=== PATIENT | female | born 1995 | race American Indian/Alaskan Native ===

== ENCOUNTER 2018-11-08 11:08 | Emergency (ER) | payer BC ==
[2018-11-08 11:35] VITALS: BP 127/63
--- NOTE | 2018-11-08 11:40 | Emergency Department Report ---
Blank Doc - Documentation Documentation: 23 y/o no pmh with cough and congestion with coryza for 10-11 days. no hemopty sis. plan CXR
[2018-11-08 12:41] LABS: HCG Qualitative,Urine Positive (Negative)
--- NOTE | 2018-11-08 12:55 | Emergency Department Report ---
Minor Respiratory - HPI Chief Complaint: Upper Respiratory Infection Stated Complaint: BAD COLD Time Seen by Provider: 11/08/18 11:38 Duration: 5 Days Severity: moderate Minor Respiratory: Yes Able to Tolerate Fluids, Yes Cough (productive of blood streaked mucus), No Rhinorrhea, No Sore Throat, No Ear Pain, No Sick Contacts, No Hemoptysis, No Chest Pain, No Shortness of Breath, No Fever ED Review of Systems ROS: Stated complaint: BAD COLD Other details as noted in HPI Comment: All other systems reviewed and negative ED Past Medical Hx - Past Medical History Previous Medical History?: No - Surgical History Additional Surgical History: left ankle repair - Social History Smoking Status: Never Smoker Substance Use Type: None - Medications Home Medications: Home Medications Medication Instructions Recorded Confirmed Last Taken Type Azithromycin [Zithromax] 250 mg PO DAILY #6 tablet 11/08/18 Unknown Rx predniSONE [Deltasone] 20 mg PO QDAY #5 tab 11/08/18 Unknown Rx Minor Respiratory Exam - Exam General: Vital signs noted. No distress. Alert and acting appropriately. HEENT: Yes Moist Mucous Membranes, No Pharyngeal Erythema, No Pharyngeal Exudates, No Rhinorrhea, No Conjuctival Injection, No Frontal Tenderness, No Maxillary Tenderness Ear: Neither TM Bulge, Neither TM Erythema, Neither EAC Pain, Neither EAC Discharge Neck: Yes Supple, No Adenopathy Lungs: Yes Good Air Exchange, No Wheezes, No Ronchi, No Stridor, No Cough, No Labored Respirations, No Retractions, No Use of Accessory Muscles, No Other Abnormal Lung Sounds Heart: Yes Regular, No Murmur Abdomen: Yes Normal Bowel Sounds, No Tenderness, No Peritoneal Signs Skin: No Rash, No Edema Neurologic: Alert and oriented, no deficits. Musculoskeletal: Unremarkable. ED Course Vital Signs 11/08/18 11:33 Temperature 97.9 F Pulse Rate 103 H Respiratory 18 Rate Blood Pressure 127/63 O2 Sat by Pulse 98 Oximetry ED Medical Decision Making - Medical Decision Making Patient was to undergo chest x-ray however presents test was positive. Patient's last menses was 5 weeks ago the patient most likely is approximately 3 weeks . Patient has no vaginal bleeding at this time. Patient has no abdominal pain. Patient be followed up by her PATENTED [employer]. Regarding the patient's upper respiratory/bronchitis type symptoms patient will be treated with Z-Domingo to be discharged home. Critical care attestation.: If time is entered above; I have spent that time in minutes in the direct care of this critically ill patient, excluding procedure time. ED Disposition Clinical Impression: Acute bronchitis Qualifiers: Bronchitis organism: unspecified organism Qualified Code(s): J20.9 - Acute bronchitis, unspecified Disposition: DC-01 TO HOME OR SELFCARE Is pt being admited?: No Does the pt Need Aspirin: No Condition: Stable Instructions: Acute Bronchitis (ED) Additional Instructions: Please make an appointment to see your PATENTED [employer]. Referrals: JORDYN THRASHER MD [Primary Care Provider] - 3-5 Days Time of Disposition: 12:55
== END 2018-11-08 12:59 | disposition home or self-care (01) ==
LOC: ED 11:08
DX: O99.511 Diseases of the respiratory system complicating pregnancy, first trimester (principal); J20.9 Acute bronchitis, unspecified; Z3A.01 Less than 8 weeks gestation of pregnancy
CPT/HCPCS: 81025; 99283